=== PATIENT | female | born 1940 | race Caucasian/White ===

== ENCOUNTER → 2023-06-30 | Outpatient (CLI) | payer MEDICARE | END | disposition home or self-care (01) | LOC: RAD 14:17 | PROVIDERS: ATTEND Family Medicine | DX: M17.11 Unilateral primary osteoarthritis, right knee (principal); M25.461 Effusion, right knee ==

== ENCOUNTER 2023-09-13 00:42 | Emergency (ER) | payer MEDICARE ==
[~2023-09-13] VITALS: Ht 165.1 cm; Wt 75.7 kg
[2023-09-13] MEDS ORDERED: NORVASC5 MG PO (19:07)
[2023-09-13] MEDS ORDERED: ANORO ELLIPTA1 EACH INH (19:07)
[2023-09-13] MEDS ORDERED: MONTELUKAST SOD10 MG PO (19:09)
[2023-09-13] MEDS ORDERED: LEVOTHYROXINE25 MCG PO (19:09)
[2023-09-13] MEDS ORDERED: LASIX20 MG PO (19:12)
[2023-09-13] MEDS ORDERED: SIMVASTATIN20 MG PO (19:12)
[2023-09-13] MEDS ORDERED: BIOTIN1 M2 PO (19:13)
[2023-09-13] MEDS ORDERED: PROAIR RESPICL90 MCG INH (19:13)
[2023-09-14] MEDS ORDERED: DOXYCYCLINE HY100 M3 PO (10:56)
== END 2023-09-13 04:46 | disposition left against medical advice (07) ==
LOC: ED 00:42
DX: S60.455A Superficial foreign body of left ring finger, initial encounter (principal); Z53.21 Procedure and treatment not carried out due to patient leaving prior to being seen by health care provider; X58.XXXA Exposure to other specified factors, initial encounter; Y93.89 Activity, other specified; Y92.89 Other specified places as the place of occurrence of the external cause; Y99.8 Other external cause status